=== PATIENT | female | born 1970 | race Caucasian/White ===

== ENCOUNTER 2018-03-21 13:54 | Emergency (ER) | payer BC, SELFPAY ==
[2018-03-21 14:04] VITALS: BP 129/95; PULSE 81; RESP 16; TEMP 37; O2SAT 98
--- NOTE | 2018-03-21 14:10 | DI.US_ITS ---
SYMPTOM/DIAGNOSIS: VAGINAL BLEEDING, PERIMENOPAUSAL, LT PELVIC PAIN PELVIC ULTRASOUND: Transabdominal and transvaginal examination was performed. No priors. The uterus measures 6.6 cm. long by 3.9 cm. AP by 4.3 cm. transverse. The endometrial stripe is within normal limits at .5 cm. There do appear to be small cervical Nabothian cysts. There is a tiny echogenic calcification in the posterior body of the uterus. No myometrial mass is seen. The left ovary measures 2.7 by 0.9 by 2.6 cm. There is normal blood flow. No evidence of torsion. The right ovary measures 2.4 by 1.7 by 2.5 cm. There is a septated, 3.7 by 2.2 by 3.0 cm. cyst on the right ovary. No internal blood flow is seen. There is a 1.5 by 1.3 by 1.2 cm. cyst on the right ovary which shows internal echoes. No evidence of ovarian torsion is seen. No significant free fluid or hydronephrosis is present. IMPRESSION: Two complex cysts seen in the right ovary as described above. Follow up as clinically appropriate. A follow up pelvic ultrasound may be obtained to document resolution of the cystic lesions.
--- NOTE | 2018-03-21 14:14 | W.ED.GENAD ---
Medical Decision Making <Rk Marcus DO - Last Filed: 03/22/18 11:04> This is a very pleasant 48-year-old female who presents for vaginal bleeding and cramping for the last week. Her last period was in 2014's. Is a control. Aside for levothyroxine she denies any other significant medications. Exam demonstrates minimal tenderness in the lower pelvis. We will get an ultrasound to rule out any significant mass, tumor, or abnormality. We will evaluate for ovarian torsion. We will give Toradol for improvement of symptoms of bleeding. 3:47 PM The patient's laboratory workup has returned, no significant abnormalities, white count, electrolyte abnormalities or signs of urinary tract infection. Patient did not want the Toradol, but was okay with oral ibuprofen. Patient is currently getting her ultrasound at this time. She did not want prophylactic treatment for gonorrhea or chlamydia. The case will be signed out to my colleague Bird Brady for follow-up on the ultrasound. The ultrasound is negative for emergent process I feel that she can be discharged home after reassessment with close follow-up with OB. HPI <Rk Marcus DO - Last Filed: 03/22/18 11:04> General Date/Time Provider Initiated Documentation: 03/21/18 13:54. HPI Narrative: This is a 40-year-old female with a past medical history of hypothyroidism who presents today for evaluation of blood vaginal bleeding for the last week in conjunction with mild pelvic pain. The pain began slightly before the vaginal bleeding. She describes it as achy and constant in sensation. It is in the left and right lower pelvis. The bleeding is roughly mild, and she goes through 2-3 pads per day with mild to moderate spotting. She denies any hemorrhage or large clots please. She has been taking Tylenol but this is not improved her symptoms. Her last period was in 2014. She denies any other associated symptoms or any history of vaginal or uterine disease. She denies any previous surgeries. She denies any nausea, vomiting, diarrhea. She has no other complaints at this time. Of note the patient was just started on doxycycline as prescribed by her primary care provider. She denies any diagnosis of bladder infection, history of STDs, or recent vaginal discharge aside for the bleeding. She is unsure why she was started on the antibiotic. 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 3.ENT: Atraumatic external nose and ears. Moist MM. Neck: Symmetric, trachea midline, No thyromegaly. 4.CVS: +S1/S2, No murmurs or gallops. Peripheral pulses 2+ and equal in all extremities. Brisk capillary refill in all extremities. 5.RESP: Unlabored respiratory effort. Clear to auscultation bilaterally. No wheezes rales or rhonchi 6.GI: Soft, Nontender/Nondistended, No hepatosplenomegaly. No guarding or rebound. Mild tenderness on palpation of the right and left lower pelvic anteriorly. No flank or CVA tenderness. Negative obturator psoas sign Vaginal exam was performed with female nurse Kandi at bedside. No cervical lesions, no active bleeding. A small amount of brown old blood noted in the vaginal vault. No significant clots. Cervix is nondilated. No cervical motion tenderness. No pain on right side of bimanual, no mass. Left-sided bimanual demonstrates mild tenderness. No other significant abnormalities 7.MSK: Normocephalic/Atraumatic, Extremities w/o deformity or ttp No cyanosis or clubbing, Normal movement of all extremities 8.Skin: Warm, Dry. No rashes or lesions. 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 Sensation grossly intact, no focal neurologic deficits. 10.Psych: (AAO) x3. Appropriate mood and affect Course <Rk Marcus DO - Last Filed: 03/22/18 11:04> Vital Signs Temperature 37.0 C 03/21/18 14:04 Pulse 81 03/21/18 14:04 Respiratory Rate 16 03/21/18 14:04 Blood Pressure 129/95 H 03/21/18 14:04 Pulse Oximetry 98 03/21/18 14:04 Temperature 37.0 C 03/21/18 14:04 Temperature Source Skin 03/21/18 14:04 Pulse 81 03/21/18 14:04 Respiratory Rate 16 03/21/18 14:04 Respiratory Effort 03/21/18 14:04 Blood Pressure 129/95 H 03/21/18 14:04 Blood Pressure Position Sitting 03/21/18 14:04 Pulse Oximetry 98 03/21/18 14:04 Oxygen Delivery Method Room Air 03/21/18 14:04 Oxygen Flow Rate 0 03/21/18 14:04 Pain Level 7 03/21/18 14:04 Sign Out <Rk Marcus DO - Last Filed: 03/22/18 11:04> Sign Out Data: Sign Out Comment: pending US results Last updated by Rk Marcus DO at 03/21/18 15:59 Post-Handoff Eval: Ultrasound report was reviewed and shows 2 complex cysts on the right ovary. Left ovary appears unremarkable. No evidence of torsion is seen. Patient reassessed and states no worsening of symptoms since being in the emergency department. Patient prescribed diclofenac for pain but she was encouraged to only use diclofenac or ibuprofen but not both together. Patient placed on care management list to help arrange women's wellness follow-up preferably next week but patient does state that she believes she has an appointment for next . Return precautions were discussed. After discussion of diagnosis and plan of care patient has no further needs, questions, or concerns and states clear understanding to return to the emergency department for any worsening symptoms or further concerns
[2018-03-21 14:20] LABS: Bilirubin Small (Negative); Blood Moderate (Negative); Clarity Clear; Glucose Negative (Negative); Ketones 15 mg/dL (Negative); Leukocyte Esterase Negative (Negative); Nitrite Negative (Negative)
[2018-03-21 14:28] LABS: Abs Immature Grans 0.01 k/cumm (0.0-0.09); Absolute Basophil Count 0.07 k/cumm (0.0-0.2); Absolute Eosinophil Count 0.08 k/cumm (0.0-0.7); Absolute Monocyte Count 0.59 k/cumm (0.11-0.7); Basophils % 0.8; Eosinophils % 0.9; HCT 41.3 % (36.0-46.0); HGB 14.3 g/dL (12.0-15.5); Immature Grans % 0.1; Lymphocytes % 27.7; Mean Corp. HGB Concentration 34.6 g/dL (32.0-36.0); Mean Corpuscular Hemoglobin 32.1 pg (27.0-33.0); Mean Corpuscular Volume 92.6 fL (80-95); Mean Platelet Volume 9.7 fL (8.0-11.0); Monocytes % 6.8; Neutrophils % 63.7; Platelet Count 243 x1000/uL (130-400); RBC 4.46 m/cumm (4.00-5.20); RBC Distribution Width 13.5 % (11.7-14.6); White Blood Cell Count 8.65 k/cumm (4.4-10.8)
[2018-03-21 14:30] LABS: Bacteria Moderate HPF (Negative); C & S Indicated? No/Sq. Contamination; Casts Negative LPF (Negative); Crystals Negative HPF (Negative); Epithelial Cells Moderate HPF (Negative); Mucus Moderate (Negative); RBC 0-2 (0-2); WBC 0-2 HPF (0-5)
[2018-03-21 14:39] LABS: ALT 27 U/L (12-78); AST 27 U/L (15-37); Albumin 4.1 g/dL (3.4-5.0); Alkaline Phosphatase 74 U/L (46-116); Anion Gap 11.4 mmol/L (3-11); BUN 11 mg/dL (7-18); Bilirubin, Total 0.5 mg/dL (0.2-1.0); CO2 25.6 mmol/L (21.0-32.0); CREATININE 0.83 mg/dL (0.55-1.02); Calcium 8.3 mg/dL (8.5-10.1); Chloride 102 mmol/L (98-107); Glucose 116 mg/dL (70-100); Potassium 3.9 mmol/L (3.5-5.1); Sodium 139 mmol/L (136-145); Total Protein 7.7 g/dL (6.4-8.2)
[2018-03-21] MEDS: Ibuprofen 800 MG TAB (14:40)
--- NOTE | 2018-03-21 16:43 | DI.VRAD_ITS ---
EXAM: US Pelvis Complete, Transabdominal EXAM DATE/TIME: 03/21/2018 4:13 PM CLINICAL HISTORY: 48 years old, female; Signs and symptoms; Other: Post menopausal vaginal bleeding x 1 week TECHNIQUE: Real-time transabdominal pelvic ultrasound with image documentation. Complete exam. COMPARISON: No relevant prior studies available. FINDINGS: Uterus/cervix: The uterus measures approximately 6.6 x 3.9 x 4.3 cm. There is a nonspecific shadowing structure likely calcification noted within the posterior myometrium. There is no evidence of a discrete myometrial mass. Endometrium is unremarkable, measuring 4-5 mm in thickness. There is a probable small nabothian cysts in the cervix Right adnexa: Right ovary measures approximately 2.4 x 1.7 x 2.5 cm. There are 2 complex cysts within the right ovary. There is a septated cyst which measures approximately 3.7 x 2.2 x 3.0 cm. There is a smaller complex cyst which measures approximately 1.5 x 1.3 x 1.2 cm. This has minimal calcification in the wall as well as some low level internal echoes. There is normal color flow to the right ovary. There is no evidence of ovarian torsion. Left adnexa: Left ovary measures approximately 2.7 x 0.9 x 2.6 cm. There is no left adnexal mass. There is normal color flow. Free fluid: No significant free fluid or focal collections are identified. Bladder: Bladder is nondistended.. IMPRESSION: 2 complex cysts in the right ovary as described. Left ovary is unremarkable. No evidence of torsion. Dictated and Authenticated by: Jaimee Perez MD. Ordering:CHITRA Beckman MD
--- NOTE | 2018-03-22 08:48 | PDOC.ERCMPRO ---
Care Management Progress Note 03/22-Bird PORRAS requested assistance with a [facility] f/u in one week for complex cysts. Referral faxed to [facility] this am.
[2018-03-25 13:57] LABS: Chlamydia Result Negative; GC Result Negative; Specimen Description CERVIX
== END 2018-03-21 17:17 | disposition home or self-care (01) ==
PROVIDERS: Student in an Organized Health Care Education/Training Program; Emergency Provider Nurse Practitioner Family; PCP Specialist/Technologist Athletic Trainer
DX: N93.9 Abnormal uterine and vaginal bleeding, unspecified (principal); N83.201 Unspecified ovarian cyst, right side
CPT/HCPCS: 36415; 80053; 87491; 87591; 96372; 99284; 76830; 76856; 81003; 81015; 85025; 87480; 87510; 87660; J1885

== ENCOUNTER 2018-03-28 16:11 | Outpatient (CLI) | payer BC, SELFPAY ==
[2018-03-28 18:15] LABS: TSH 4.23 uIU/mL (0.358-3.74)
== END 2018-03-28 16:31 ==
PROVIDERS: PCP Specialist/Technologist Athletic Trainer; Visit Provider Nurse Practitioner Women's Health
DX: E03.9 Hypothyroidism, unspecified (principal)
CPT/HCPCS: 36415; 84439; 84443

== ENCOUNTER 2018-03-28 17:39 | Outpatient (REF) | payer BC, SELFPAY ==
--- NOTE | 2018-03-28 15:55 | ENDOMET_PTH ---
PATIENT: Lynette Sofia LOC: N U#:[id number] AGE/SX: 48/F ROOM: RE03/28/[address]: Nicole Garcia NP : 1970 BED: DIS: 03/28/2018 SPEC #: [id number] RECD: 03/28/18 17:48 STATUS: CULLEN REAlba #: [id number] SY: 03/28/18 15:[address]: Nicole Garcia NP DEPT: Surgical Specimen RECD BY: Mickie Yung ENTERED: 03/28/18 17:48 SP TYPE: Endomet OTHR DR: Elliot Wilson Tissues: 1 - ENDOMETRIUM BX/RICARDO Procedures: GROSS AND MICRO LEVEL 4 Comments: [id number]
== END 2018-03-28 17:59 ==
LOC: LBN 17:39
PROVIDERS: PCP Specialist/Technologist Athletic Trainer; Visit Provider Nurse Practitioner Women's Health
DX: N85.8 Other specified noninflammatory disorders of uterus (principal); N95.0 Postmenopausal bleeding
CPT/HCPCS: 88305

== ENCOUNTER 2018-07-19 13:42 | Emergency (ER) | payer BC, SELFPAY ==
[2018-07-19 13:53] VITALS: BP 124/66; PULSE 64; RESP 20; TEMP 36.8; O2SAT 98
[2018-07-19] MEDS: Ketorolac 30 MG/ML VIAL IVP (14:21)
[2018-07-19] MEDS: diphenhydrAMINE 50 MG/ML VIAL 25 MG IVP (14:21)
[2018-07-19] MEDS: Prochlorperazine 10 MG/2 ML VIAL IVP (14:22)
[2018-07-19] MEDS: Normal Saline 1,000 ML 1000 ML IV (14:22)
--- NOTE | 2018-07-19 14:27 | ED.GENADUL_ITS ---
Discharge Plan Disposition Patient Disposition: HOME Condition: Stable Discharge Details Chief Complaint: Headache Clinical Impression: Headache Primary Care Provider: Rochelle Brewster V ED Provider: Colt Brady Home Meds and New Rx's Prescriptions: New doxycycline hyclate 100 mg capsule 100 mg PO BID Qty: 28 RF: 0 Continued levothyroxine [Synthroid] 175 mcg tablet 175 mcg PO DAILY Qty: 90 RF: 0 multivitamin [Daily Multi-Vitamin] 1 EACH tablet 1 tab PO DAILY RF: 0 diclofenac potassium 50 mg tablet 50 mg PO TID PRN (Reason: pain) Qty: 12 RF: 0 Discharge Instructions Instructions: General Headache (ED) Additional Instructions: Return immediately to the emergency department for any new or worsening symptoms, fever, or any neurologic change, or any emergent concerns you have. Otherwise you may start the antibiotic and follow-up with your primary care as already scheduled for next week. While on the antibiotic you should make sure that you use sunscreen as this medication may cause photosensitivity. Referrals: Rochelle Brewster MD [Primary Care Provider] - 07/23/18 (Please keep your appointment for next week as scheduled) Medical Decision Making Patient presenting to the emergency department for chief complaint of headache. She states that this is been going on for 1 week and is a frontal headache. She does state a couple days ago she noticed a swollen area on the back of her head and had noted some ticks crawling on her. Patient denies any fever chills, arthralgias, focal neurological changes, nausea vomiting or photophobia. She does states that she does not typically get headaches and does have a family history of aneurysm on her father's side. Patient states that she only takes Synthroid and is otherwise healthy. Physical exam shows no nuchal rigidity or meningeal signs, no focal neurological deficits, normal neurological exam, normal cardiac respiratory exam, patient does have a swollen lymph node on the posterior occipital with just superior to that to areas that appear like excoriated tick bite. With palpation of this area patient does have increase in pain and discomfort. Given the patient has never had a headache of this nature before with family history plan to do CT imaging and check labs. Also of consideration is tickborne illness with atypical presentation so plan to add tick panel. Pending imaging patient given ketorolac, Benadryl, Compazine, and liter of fluids. Review of labs show normal CBC with no abnormalities noted, CMP only showing mildly elevated anion gap otherwise normal LFTs and otherwise nondiagnostic ESR of 4, and CT showing no acute findings. Patient reassessed after review of all results and shows mild improvement after medications. Plan to add Decadron to see if this helps with her symptoms. Did discuss with patient risk versus benefit of lumbar puncture or additional procedures which I do not feel is emergently necessary at this time given patient's overall well in appearance and no worrisome physical exam findings. At this time patient refused lumbar puncture which I feel is reasonable. Did talk about risk versus benefit of doxycycline for possible tickborne illness. After thorough discussion of this which would be an atypical presentation but a possibility we agreed upon plan of care for patient to start doxycycline until results come back. Patient does state that she already has a primary care follow-up scheduled for early next week which I feel is appropriate. Return precautions were thoroughly discussed and patient stated clear understanding of these. After discussion of diagnosis and plan of care patient has no further needs, questions, or concerns and states clear understanding to return to the emergency department for any worsening symptoms. HPI General Mode of arrival: ambulatory . Date/Time Provider Initiated Documentation: 07/19/18 13:54 . Limitations to Documentation: no limitations . Information obtained by: patient and RN notes reviewed . History of Present Illness 48 year old F presents to the emergency department with the chief complaint of Headache, described as moderate, with intensity rated at 7. and is localized to the head. Patient started experiencing this week(s) (1) and it has been constant. No relieving factors improve symptom(s), Patient notes no other symptoms.. Patient did receive the following treatments prior to arrival, NSAID Related Data Home Medications Medication Instructions Recorded Confirmed multivitamin [Daily Multi-Vitamin] 1 tab PO DAILY 06/27/15 07/19/18 diclofenac potassium 50 mg PO TID PRN #12 tab 03/21/18 07/19/18 Synthroid 175 mcg tablet 175 mcg PO DAILY #90 tab NS 04/03/18 07/19/18 doxycycline hyclate 100 mg PO BID #28 cap 07/19/18 Previous Rx's Medication Instructions Recorded diclofenac potassium 50 mg PO TID PRN #12 tab 03/21/18 Synthroid 175 mcg tablet 175 mcg PO DAILY #90 tab NS 04/03/18 doxycycline hyclate 100 mg PO BID #28 cap 07/19/18 Allergies Allergy/AdvReac Type Severity Reaction Status Date / Time No Known Allergies Allergy Unverified 07/19/18 13:55 General Stated Complaint: Headache LORA: 3 Review of Systems Constitutional Denies body ache(s), Denies chills, Denies fever(s) and Reports headache(s) Eyes Denies change in vision ENT Denies dizziness and Reports headache(s) Cardiovascular Denies chest pain and Denies syncope Gastrointestinal Denies nausea and Denies vomiting Integumentary/Breasts Denies rash and Reports other (bug bite with swelling) Neurologic Reports as per HPI, Denies dizziness, Denies syncope, Reports headache(s) and Denies sensory deficit PFSH Medical History Hypothyroidism (acquired) (Chronic) Thyroid cancer (Resolved) Post-menopausal bleeding (Acute) Pelvic pain (Acute) Surgical History H/O thyroidectomy (Chronic) Social History Smoking/Tobacco Use Status: Current every day Alcohol Intake: current Alcohol Intake frequency: holidays/special occasions only Drug use: Never Substance use type: does not use Female Reproductive History Menstrual Menopause type: natural (2014) History History 3 Para 3 Hx # Term Pregnancies Multiple births Hx # Pregnancies Ectopic pregnancies AB induced Hx Number of Living Children AB spontaneous Exam Const General: cooperative, healthy appearing, no acute distress and well groomed Orientation: alert, awake and oriented x3 HENMT Head: normal to inspection Ears: hearing grossly normal bilaterally and TM's normal bilaterally Mouth: oral mucosae normal and moist mucous membranes Throat: posterior oropharynx normal Eyes Visual Hinson: normal visual hinson by confrontation Alignment and Position: alignment normal Periorbital: periorbital findings normal Eyelids: eyelids normal Sclera: sclerae normal Cornea: corneas normal Pupils: PERRL EOM: EOM intact bilaterally Neck Neck: normal visual inspection, full ROM, no meningeal signs and lymphadenopathy (Posterior superior occipital lymphadenopathy) Resp Effort & Inspection: normal respiratory effort and able to speak in complete sentences Auscultation: clear to auscultation bilaterally Cardio Rate: regular rate Rhythm: regular rhythm Heart Sounds: S1 normal and S2 normal Skin Hair: normal and other (2 small areas of excoriation superior to lymphadenopathy on posterior occip) Neuro General: alert, awake, oriented x3, gait normal, tone normal, moves all extremit ies, CN's II-XI intact bilaterally and not confused Cognition: normal cognition Speech: speech normal Motor: muscle tone normal throughout, strength 5/5 throughout, no pronator drift, no movement abnormalities noted and no fasciculations Sensory Exam: no sensory deficits noted Coordination: [id number] test normal, Romberg test normal, Does not sway with eyes open, rapid alternating movement UE normal and rapid alternating movement LE normal Course Vital Signs Temperature 36.8 C 07/19/18 13:53 Pulse 64 07/19/18 13:53 Respiratory Rate 20 07/19/18 13:53 Blood Pressure 124/66 07/19/18 13:53 Pulse Oximetry 98 07/19/18 13:53 Temperature 36.8 C 07/19/18 13:53 Temperature Source Temporal Artery Scan 07/19/18 13:53 Pulse 64 07/19/18 13:53 Respiratory Rate 20 07/19/18 13:53 Respiratory Effort Non-Labored 07/19/18 13:53 Blood Pressure 124/66 07/19/18 13:53 Pulse Oximetry 98 07/19/18 13:53 Oxygen Delivery Method Room Air 07/19/18 13:53 Oxygen Flow Rate 0 07/19/18 13:53 Pain Level 7 07/19/18 13:58
[2018-07-19 14:38] LABS: Abs Immature Grans 0.01 k/cumm (0.0-0.09); Absolute Basophil Count 0.05 k/cumm (0.0-0.2); Absolute Eosinophil Count 0.24 k/cumm (0.0-0.7); Absolute Monocyte Count 0.57 k/cumm (0.11-0.7); Absolute Neutrophil Count 2.67 k/cumm (1.2-6.7); Basophils % 0.9; Eosinophils % 4.4; HGB 14.8 g/dL (12.0-15.5); Immature Grans % 0.2; Lymphocytes % 34.9; Mean Corp. HGB Concentration 35.2 g/dL (32.0-36.0); Mean Corpuscular Volume 90.9 fL (80-95); Mean Platelet Volume 10.1 fL (8.0-11.0); Monocytes % 10.5; Neutrophils % 49.1; Platelet Count 225 x1000/uL (130-400); RBC 4.62 m/cumm (4.00-5.20); RBC Distribution Width 13.1 % (11.7-14.6); White Blood Cell Count 5.44 k/cumm (4.4-10.8)
--- NOTE | 2018-07-19 14:45 | NUR.NOTE ---
Nursing Note: pt in ct
--- NOTE | 2018-07-19 14:50 | DI.CT_ITS ---
SYMPTOMS/DIAGNOSIS: HEADACHE CT BRAIN: Noncontrast examination was performed. The ventricular system is normal in appearance. There is no evidence of an intracranial mass lesion. There is no evidence of a subdural or epidural hematoma. No focal areas of decreased attenuation are seen. IMPRESSION: Normal noncontrast cranial CT. The findings were discussed with the Emergency Department on the date of the examination.
[2018-07-19 14:54] LABS: ALT 31 U/L (12-78); AST 17 U/L (15-37); Albumin 4.1 g/dL (3.4-5.0); Alkaline Phosphatase 67 U/L (46-116); Anion Gap 11.7 mmol/L (3-11); BUN 7 mg/dL (7-18); Bilirubin, Total 0.5 mg/dL (0.2-1.0); CO2 24.3 mmol/L (21.0-32.0); CREATININE 1.02 mg/dL (0.55-1.02); Calcium 8.8 mg/dL (8.5-10.1); Chloride 102 mmol/L (98-107); Estimated GFR 57.84 (mL/min/1.73m2); Glucose 97 mg/dL (70-100); Potassium 3.9 mmol/L (3.5-5.1); Sodium 138 mmol/L (136-145); Total Protein 7.4 g/dL (6.4-8.2)
[2018-07-19 15:45] LABS: ESR 4 MM/HR (0-20)
[2018-07-19] MEDS: Dexamethasone 10 MG/ML VIAL IVP (15:58)
[2018-07-19 16:00] VITALS: BP 128/74; PULSE 53; RESP 18; O2SAT 100
[2018-07-21 21:33] LABS: Anaplasma phagocytophilum Negative (Negative); B. miyamotoi PCR Negative (Negative); Babesia divergens/MO-1 Negative (Negative); Babesia duncani Negative (Negative); Babesia microti Negative (Negative); Ehrlichia chaffeensis Negative (Negative); Ehrlichia ewingii/canis Negative (Negative); Ehrlichia muris eauclairensis Negative (Negative)
[2018-07-22 11:57] LABS: Lyme Ab w Rflx to Lyme Confirm Negative
== END 2018-07-19 16:06 | disposition home or self-care (01) ==
PROVIDERS: Emergency Provider Nurse Practitioner Family; PCP Family Medicine
DX: R51 Headache (principal)
CPT/HCPCS: 36415; 80053; 85652; 87798; 96361; 96374; 96375; 99284; 70450; 85025; 86618; J0780; J1100; J1200; J1885

== ENCOUNTER 2019-12-01 16:54 | Outpatient (REF) | payer BC, SELFPAY ==
--- NOTE | 2019-12-01 16:30 | PAPFT_PTH ---
PATIENT: Lynette Sofia LOC: [facility] U#:[id number] AGE/SX: 49/F ROOM: RE12/01/[address]: Tamiko Lazo : 1970 BED: DIS: 12/01/2019 SPEC #: [id number] RECD: 12/02/19 12:59 STATUS: CULLEN REQ #: [id number] SY: 12/01/19 16:[address]: Tamiko Lazo DEPT: [facility] Cytology RECD BY: Mickie Yung ENTERED: 12/02/19 13:00 SP TYPE: PAPFT OTHR DR: Rochelle Brewster V Tissues: 1 - CX/ENDOCX FOR PAP SMEARS Procedures: PAP THIN PREP/[facility] Screening HPV DNA PROBE Comments: [id number] ([facility] [place])
[2019-12-01 20:23] LABS: TSH (W/Ref FT4) < 0.01 uIU/mL (0.36-3.74)
[2019-12-01 20:39] LABS: FREE T4 1.77 ng/dL (0.76-1.46)
== END 2019-12-01 17:14 ==
LOC: NCHCN 16:54
PROVIDERS: PCP Family Medicine; Visit Provider Nurse Practitioner Family
DX: Z00.00 Encounter for general adult medical examination without abnormal findings (principal); L29.8 Other pruritus; Z01.419 Encounter for gynecological examination (general) (routine) without abnormal findings; Z12.4 Encounter for screening for malignant neoplasm of cervix
CPT/HCPCS: 88142; 84439; 84443; 87480; 87510; 87624; 87660

== ENCOUNTER 2019-12-05 11:47 | Outpatient (REF) | payer BC, SELFPAY ==
--- NOTE | 2019-12-04 10:20 | LABIA_PTH ---
PATIENT: Lynette Sofia LOC: [facility] U#:[id number] AGE/SX: 49/F ROOM: RE12/05/[address]: Tae Kitchen MD : 1970 BED: DIS: 12/05/2019 SPEC #: [id number] RECD: 12/05/19 12:51 STATUS: CULLEN REQ #: [id number] SY: 12/04/19 10:[address]: Tae Kitchen DEPT: Surgical Specimen RECD BY: Mickie Yung ENTERED: 12/05/19 12:52 SP TYPE: LABIA OTHR DR: Rochelle Brewster V Tissues: 1 - LABIA BX Procedures: GROSS AND MICRO LEVEL 4 Comments: [id number] ([facility] [place]
== END 2019-12-05 12:07 ==
LOC: LBN 11:47
PROVIDERS: PCP Family Medicine; Visit Provider Obstetrics & Gynecology
DX: L30.9 Dermatitis, unspecified (principal); N94.89 Other specified conditions associated with female genital organs and menstrual cycle
CPT/HCPCS: 88305

== ENCOUNTER 2021-01-20 19:09 | Outpatient (REF) | payer BC, SELFPAY ==
[2021-01-20 19:47] LABS: TSH (W/Ref FT4) 15.21 uIU/mL (0.36-3.74)
[2021-01-20 20:08] LABS: FREE T4 0.85 ng/dL (0.76-1.46)
== END 2021-01-20 19:10 | disposition home or self-care (01) ==
LOC: NCHCN 19:09
PROVIDERS: PCP Family Medicine; Visit Provider Nurse Practitioner Family
DX: E03.9 Hypothyroidism, unspecified (principal)
CPT/HCPCS: 84439; 84443